=== PATIENT | female | born 1990 | race Caucasian/White ===

== ENCOUNTER 2020-06-08 07:29 | Inpatient (IN) ==
[2020-06-08] MEDS ORDERED: OXYTOCIN 30 UNITS/500 ML BAG IV PRN ×3 (07:45→08:47)
[2020-06-08] MEDS: LACTATED RINGER'S 1,000 ML IV PRN ×4 (08:12→19:01)
[2020-06-08 08:14] LABS: Hematocrit (blood only) 35.6 % (37-47); Hemoglobin 11.8 g/dL (12.0-16.0); Mean Corpuscular Hemoglobin 30.8 pg (25-34); Mean Platelet Volume 10.6 fL (7.4-10.4); Platelet Count 212 K/uL (130-400); RDW Coefficient of Variation 15.1 % (11.5-14.5); RDW Standard Deviation 51.3 fL (36.4-46.3); Red Blood Count 3.83 M/uL (4.2-5.4); White Blood Count 9.48 K/uL (4.8-10.8)
[2020-06-08 08:20] LABS: Mean Corpuscular Hgb Conc 33.1 g/dL (32-36)
--- NOTE | 2020-06-08 08:38 | History & Physical Report ---
Date of Service June 08, 2020 Assessment & Plan (1) Elective induction of labor planned: Hortencia is a 29 y/o female currently at 40-6/7 WGA with an CAPO 06/02/20 as determined by LMP who is here with her , Tom, for scheduled IOL in setting of post-dates after undergoing cervical ripening yesterday evening. - Begin IOL with Pitocin protocol - Patient requesting epidural -- anesthesia consulted - GBS neg - Blood type A+ - Rubella immune History of Present Illness Primary Care Provider: NO PCP Hortencia is a 29 y/o female currently at 40-6/7 WGA with an CAPO 06/02/20 as determined by LMP who is here for scheduled IOL for post-dates after undergoing cervical ripening yesterday. She had no complications during her . Overall, feels well today. Endorses irregularly spaced contractions after cervical ripening last night, but none this AM; has noted less movement over last two days as compared to her normal; denies fluid loss; denies bloody show. 06/08: External FHT and external uterine monitors used; Category 1 tracing; +FHT variability with baseline FHR ~150. Had regular appointments with OB. Labs: (11/26/19) Blood type: A+ Antibody screen: neg H.8 (today) Hct: 35.6 (today) WBC: 9.48 (today) Plt: 212 (today) Rubella: immune VDRL/RPR: neg Gonorrhea: neg Chlamydia: neg HIV: neg GBS: neg Allergies Allergy/AdvReac Type Severity Reaction Status Date / Time Penicillins Allergy joint Verified 06/07/20 12:26 swelling as a baby Home Medications Home Medications Medication Instructions Recorded Confirmed Type prenat.vits,godwin,sqt-nfrl-spkco 1 tab PO DAILY 11/19/19 06/08/20 History ferrous sulfate 325 mg (65 mg 325 mg PO Q OTHER DAY tab 04/07/20 06/08/20 History iron) tablet Patient History Social History (Updated 11/19/19 @ 10:59 by Liane Martinez) Smoking Status: Never smoker Second Hand Exposure: No; Hx Alcohol Use: No Hx Substance Use: No Preferred Language: Arabic Beliefs That Will Affect Care: None marital status: marital status details: Tom Redd (31) [phone] Current Living Situation: Spouse Current Living Situation Comment: lives with spouse, 2 dogs current occupational status: employed current occupation: dental hygenist Other Information That Helps Us Care for You: No Feels Safe at Home: Yes Safety Concerns: Feels Safe At This Time Review of Systems no fever, no chills and no sweats denies headache, changes in vision no dyspnea no chest pain, no dyspnea, no dyspnea at rest and no palpitations no dysuria no breast pain Physical Exam Physical Exam: General: Alert, oriented. No acute distress. Cardiac: Regular rate and rhythm, no murmurs/rubs/gallops. Respiratory: Clear to auscultation bilaterally a/p, no wheezes/rales/rhonchi. No increased work of breathing. Symmetrical chest rise. No respiratory distress. Pelvic: Dilation 4 cm; Effacement 70%; Station -[address] Beltran as of this AM Lower Extremities: No lower extremity edema or swelling. No deep calf pain. Mandie's negative bilaterally Results & Data Vital Signs (Past 12 Hours) Vital Signs Temp Pulse Resp BP 06/08/20 08:23 92 H 105/62 06/08/20 07:35 37.1 C 106 H 20 109/67 Supervising Physician Co-Signing Physician Notes Resident Physician Supervision Note: I interviewed and examined the patient. Discussed with Dr. Jalloh and agree with findings and plan as documented in the note. Any exceptions or clarifications are listed here: [None] Documented By: Dolly Shultz MD, FACOG Resident Activity Tracking Resident Involvement: Resident Care Provided Care Provided: Adult Hospital Medicine and OB Delivery
[2020-06-08] MEDS ORDERED: ePHEDrine sulfate 50 MG/ML AMP ONE (10:42)
[2020-06-08] MEDS ORDERED: fentaNYL 2MCG/ML ROPIV 1.25MG/ML 100 ML BAG EPI ONE (10:42)
[2020-06-08] MEDS ORDERED: fentaNYL citrate 100 MCG/2 ML VIAL ONE ×2 (10:42→22:51)
[2020-06-08] MEDS ORDERED: BUPIVACAINE 0.25% 30 ML VIAL ONE (10:42)
[2020-06-08] MEDS ORDERED: NALOXONE HCL 0.4 MG/1 ML VIAL/CARP IV PRN ×2 (11:12→22:53)
[2020-06-08] MEDS ORDERED: ePHEDrine sulfate 50 MG/ML AMP IV PRN ×2 (11:12→22:53)
[2020-06-08] MEDS ORDERED: DiphenhydrAMINE HCL 50 MG/ML VIAL IV PRN ×2 (11:12→22:53)
[2020-06-08] MEDS ORDERED: ONDANSETRON INJ 2 MG/ML 2 ML VIAL IV PRN (11:12)
[2020-06-08] MEDS ORDERED: NALOXONE HCL 1 MG in SODIUM CHLORIDE 0.9% 1000ML 1,000 ML IV PRN ×2 (11:12→22:53)
--- NOTE | 2020-06-08 11:19 | Anesthesiology Consultation ---
Date of Service June 08, 2020 Covid 19 negative on 06/02/20. Assessment & Plan Chart Review Chart Review: Patient NOT seen in Pre Admission Testing and Acceptable Risk for Labor Epidural Consults Requested none ASA ASA2 Proposed Anesthesia Anesthesia Type: Labor Epidural and CSE Risk / Benefits Reviewed With: PT / POA / Parent / Guardian, Accepts Plan and Informed Consent Obtained History Height/Weight Height: 5 ft 2 in Weight: 80.087 kg Allergies Allergy/AdvReac Type Severity Reaction Status Date / Time Penicillins Allergy joint Verified 06/07/20 12:26 swelling as a baby Medications Home Medications Medication Instructions Recorded Confirmed Last Taken prenat.vits,godwin,arc-cytg-yfocm 1 tab PO DAILY 11/19/19 06/08/20 06/07/20 08:00 ferrous sulfate 325 mg (65 mg 325 mg PO Q OTHER DAY tab 04/07/20 06/08/2005/11 08:00 iron) tablet Active Medications Generic Name Dose Route Start Last Admin Trade Name Freq PRN Reason Stop Dose Admin Lactated Ringer's 1,000 mls @ 125 mls/hr 06/08/20 07:45 06/08/20 11:16 Lr IV 06/10/20 07:44 999 mls/hr .Q8H PRN Administration L&D Protocol Protocol Oxytocin 30 units in 500 mls @ 9 mls/hr 06/08/20 07:45 06/08/20 10:33 Pitocin IV 06/10/20 07:44 0.54 units/hr .Q24H PRN 9 mls/hr Labor Induction/Augmentation Titration Protocol 0.54 UNITS/HR NPO Date Last Intake of Fluids: 06/08/20 Time Last Intake of Fluids: 10:00 Date Last Intake of Solids: 06/08/20 Time Last Intake of Solids: 06:45 Past Medical History Medical History Hx: UTI (urinary tract infection) Varicella vaccination Exercise / Class Metabolic Activity II 4-5 Yardwork/Stairs/Walk up hill Past Family History Family History Grandfather (Paternal) Type 1 diabetes Heart disease Father Heart disease Dyslipidemia Grandmother (Paternal) Breast cancer Past Surgical History Surgical History History of tonsillectomy and adenoidectomy (~06/01/02) Hx of breast reduction, elective (~05/27/12) Past Anesthesia History No Hx of Anesthesia Complications and No Family Hx of Anesthesia Complications History of PONV No Hx of PONV and No Hx of Motion Sickness Social History Smoking Status: Never smoker Hx Alcohol Use: No Hx Substance Use: No substance use type: does not use Review of Systems no chest pain or sob Physical Exam Vital Signs Last Vital Signs Temp 36.8 C 06/08/20 08:45 Pulse 156 H 06/08/20 11:03 Resp 16 06/08/20 09:24 BP 108/66 06/08/20 10:37 Pulse Ox 79 L 06/08/20 11:03 ENMT Mouth: no TMJ abnormality Thyromental Distance: > or= 3.5 Finger Breadths Mallampati Class: II Neck normal visual inspection Respiratory normal respiratory effort Auscultation: lungs clear to auscultation bilaterally Cardiovascular Rate/Rhythm: regular rate and regular rhythm Musculoskeletal Spine: normal cervical ROM Neurologic moves all extremities Psychiatric Orientation: alert and oriented x 3 Testing Laboratory Results 06/08/20 07:55
[2020-06-08] MEDS: fentaNYL 2MCG/ML ROPIV 1.25MG/ML 100 ML BAG EPI PRN ×2 (11:32→20:02)
[2020-06-08] MEDS ORDERED: CITRIC ACID/SODIUM CITRATE 15 ML UDC PO SCH (22:30)
[2020-06-08] MEDS ORDERED: CEFAZOLIN 2000MG 2,000 MG/15 ML SYR IV SCH (22:30)
[2020-06-08] MEDS ORDERED: MoRPHine SULFATE PF 1 MG/ML 10 ML AMP/VIAL EPI ONE (22:53)
[2020-06-08] MEDS ORDERED: LACTATED RINGER'S 500 ML IV PRN (22:53)
[2020-06-08] MEDS ORDERED: HYDROmorphone INJ 0.5 MG/0.5 ML SYR IV PRN (22:53)
[2020-06-08] MEDS ORDERED: NALOXONE HCL 0.08 MG in SYRINGE 1.8 ML IV PRN (22:53)
[2020-06-08] MEDS ORDERED: SODIUM CHLORIDE 0.9% 1000ML 1,000 ML IV SCH (23:00)
[2020-06-08] MEDS ORDERED: DC INTRASPINAL MORPHINE SCH (23:00)
[2020-06-08] MEDS ORDERED: NO NARCOTICS OR SEDATIVES SCH (23:00)
[2020-06-08] MEDS ORDERED: OXYTOCIN 10 UNITS/ML VIAL ONE (23:08)
[2020-06-08] MEDS ORDERED: MoRPHine SULFATE PF 1 MG/ML 10 ML AMP/VIAL ONE (23:08)
[2020-06-08] MEDS ORDERED: PHENYLEPHRINE HCL 10 MG/ML VIAL ONE (23:13)
--- NOTE | 2020-06-08 23:53 | Post Operative Brief Note ---
PG Immediate Post Op with CF Date of Surgery June 08, 2020 Pre & Post Diagnosis Operation Date: 06/08/20 23:00 Pre-Op Diagnosis: 1. intolerance to labor Post-Op Diagnosis: 1. Same 2. Delivery of live male child at 2319 I identified the patient and participated in the time-out.: Yes Procedure Operation Date: 06/08/20 23:00 Actual Procedures p Section in LD(Bilateral) - Dolly Shultz MD, FACOG Surgeon Dolly Shultz MD, FACOG [employer] Plant Operator Danay Tsai RN Estimated Blood Loss 700 Findings Consistent with Post-Op Diagnosis Specimens Specimen Description: 1. Cord blood 2. Placenta-hold Drains Calzada Catheter
[2020-06-09] MEDS ORDERED: PROMETHAZINE HCL 25 MG in SODIUM CHLORIDE 0.9% 50 ML IV PRN
[2020-06-09] MEDS ORDERED: DIPHTHERIA/TETANUS/PERTUSSIS 0.5 ML SYR/VIAL IM ONE
[2020-06-09] MEDS ORDERED: MAGNESIUM HYDROXIDE SUSP 30 ML UDC PO PRN
[2020-06-09] MEDS ORDERED: ACETAMINOPHEN 325 MG TAB PO PRN
[2020-06-09] MEDS ORDERED: BENZOCAINE 20% AER SPR 82.5 GM CAN EXT PRN
[2020-06-09] MEDS ORDERED: SENNA 8.6 MG TAB PO PRN
[2020-06-09] MEDS ORDERED: HYDROCORTISONE ACETATE 25 MG SUPP PR PRN
[2020-06-09] MEDS ORDERED: SUPERCREAM 0.870% 15 GM JAR EXT PRN
[2020-06-09] MEDS: KETOROLAC 30 MG/ML VIAL IV PRN ×3 (00:36→16:30)
[2020-06-09] MEDS: OXYTOCIN 20 UNITS in LACTATED RINGER'S 1,000 ML IV SCH ×2 (00:57→09:05)
--- NOTE | 2020-06-09 00:58 | Anesthesiology Progress Note ---
Date of Service June 09, 2020 Anesthesia Post Procedure Vital Signs Vital Signs: Temp Pulse Resp BP Pulse Ox 06/09/20 00:56 79 99 06/09/20 00:52 88 93/56 L 06/09/20 00:51 82 99 06/09/20 00:46 83 98 06/09/20 00:43 93 H 87/57 L 06/09/20 00:41 87 100 06/09/20 00:36 84 98 06/09/20 00:32 78 93/51 L 06/09/20 00:31 76 98 06/09/20 00:26 79 98 06/09/20 00:22 72 92/54 L 06/09/20 00:21 77 99 06/09/20 00:16 84 99 06/09/20 00:12 101 H 99/55 L 06/09/20 00:11 111 H 98 06/09/20 00:09 82 91 06/09/20 00:06 84 100 06/09/20 00:01 78 106/57 L 100 06/08/20 22:53 84 97 06/08/20 22:51 72 119/69 06/08/20 22:48 90 97 06/08/20 22:43 80 97 06/08/20 22:38 90 97 06/08/20 22:36 85 119/73 06/08/20 22:33 75 97 06/08/20 22:30 37.0 C 06/08/20 22:28 76 98 06/08/20 22:23 79 98 06/08/20 22:21 78 115/67 06/08/20 22:18 83 97 06/08/20 22:13 82 100 06/08/20 22:08 82 109/62 100 06/08/20 22:03 82 100 06/08/20 22:00 18 06/08/20 21:58 75 100 06/08/20 21:53 79 101/55 L 97 06/08/20 21:48 82 96 06/08/20 21:43 68 95 06/08/20 21:38 76 96 06/08/20 21:37 72 105/58 L 06/08/20 21:33 71 96 06/08/20 21:30 18 06/08/20 21:28 76 97 06/08/20 21:23 74 97 06/08/20 21:22 75 109/61 06/08/20 21:18 78 97 06/08/20 21:13 82 97 06/08/20 21:10 37.2 C 18 06/08/20 21:08 75 95 06/08/20 21:06 77 100/65 06/08/20 21:03 78 96 06/08/20 20:58 78 95 06/08/20 20:53 74 97 06/08/20 20:51 81 104/65 06/08/20 20:48 72 97 06/08/20 20:43 92 H 97 06/08/20 20:38 74 97 06/08/20 20:37 69 103/55 L 06/08/20 20:33 72 96 06/08/20 20:30 18 06/08/20 20:28 73 96 06/08/20 20:25 74 93 06/08/20 20:23 70 87/51 L 97 06/08/20 20:18 70 95 06/08/20 20:13 76 96 06/08/20 20:08 94 H 110/54 L 97 06/08/20 20:03 78 95 06/08/20 20:00 18 06/08/20 19:58 72 95 06/08/20 19:55 78 94 06/08/20 19:53 85 96 06/08/20 19:51 86 94/52 L 06/08/20 19:48 87 96 06/08/20 19:47 71 94 06/08/20 19:43 90 96 06/08/20 19:39 75 94 06/08/20 19:37 83 101/57 L 96 06/08/20 19:32 76 96 06/08/20 19:30 18 06/08/20 19:27 68 95 06/08/20 19:22 76 106/60 96 06/08/20 19:17 74 96 06/08/20 19:12 88 96 06/08/20 19:09 37.3 C 18 06/08/20 19:07 84 96 06/08/20 19:06 70 107/64 06/08/20 19:02 83 96 06/08/20 18:57 81 96 06/08/20 18:52 82 112/64 97 06/08/20 18:47 79 97 06/08/20 18:42 66 96 07/29/20 18:37 77 111/67 98 06/08/20 18:32 74 96 06/08/20 18:27 69 95 06/08/20 18:22 84 97 06/08/20 18:21 76 101/58 L 06/08/20 18:17 83 98 06/08/20 18:14 84 90 06/08/20 18:12 85 97 06/08/20 18:08 77 94 06/08/20 18:07 74 95 06/08/20 18:06 73 100/50 L 06/08/20 18:02 75 95 06/08/20 17:57 75 95 06/08/20 17:52 73 103/56 L 95 06/08/20 17:47 77 95 06/08/20 17:45 74 94 06/08/20 17:42 77 95 06/08/20 17:37 70 106/58 L 96 06/08/20 17:32 70 95 06/08/20 17:27 71 95 06/08/20 17:22 75 106/58 L 96 06/08/20 17:17 76 96 06/08/20 17:12 64 97 06/08/20 17:08 74 106/61 06/08/20 17:07 79 97 06/08/20 17:03 84 94 06/08/20 17:02 79 96 06/08/20 16:57 74 95 06/08/20 16:52 37.0 C 72 20 110/56 L 96 06/08/20 16:47 77 97 06/08/20 16:42 69 97 06/08/20 16:38 73 93 06/08/20 16:37 71 103/52 L 95 06/08/20 16:32 78 93 06/08/20 16:27 79 98 06/08/20 16:22 76 98/51 L 96 06/08/20 16:17 81 97 06/08/20 16:12 84 96 06/08/20 16:09 73 91/51 L 06/08/20 16:07 73 98 06/08/20 16:06 75 89/53 L 06/08/20 16:02 73 96 06/08/20 15:57 73 96 06/08/20 15:52 69 91/53 L 95 06/08/20 15:47 77 96 07/29/20 15:42 78 96 06/08/20 15:37 75 91/51 L 96 06/08/20 15:32 86 95 06/08/20 15:27 94 H 95 06/08/20 15:26 88 92 06/08/20 15:22 86 96 06/08/20 15:21 76 106/62 06/08/20 15:20 88 94 06/08/20 15:17 75 96 06/08/20 15:15 91 H 94 06/08/20 15:12 85 95 06/08/20 15:07 100 H 97 06/08/20 15:06 36.2 C L 76 18 107/63 06/08/20 15:02 94 H 96 06/08/20 14:57 81 97 06/08/20 14:53 80 94 06/08/20 14:52 81 102/58 L 95 06/08/20 14:47 73 95 06/08/20 14:42 76 96 06/08/20 14:37 78 97 06/08/20 14:36 70 104/66 06/08/20 14:32 74 99 06/08/20 14:27 36.8 C 71 20 99 06/08/20 14:22 74 99 06/08/20 14:21 71 102/66 06/08/20 14:17 75 100 06/08/20 14:12 77 100 06/08/20 14:08 76 102/59 L 06/08/20 14:07 90 107/74 97 06/08/20 14:02 73 95 06/08/20 13:57 62 95 06/08/20 13:52 69 16 98/53 L 97 06/08/20 13:47 76 97 06/08/20 13:42 74 97 06/08/20 13:37 71 16 94/55 L 97 06/08/20 13:32 73 97 06/08/20 13:27 70 97 06/08/20 13:22 85 20 115/61 99 06/08/20 13:17 78 97 06/08/20 13:12 73 97 06/08/20 13:07 79 94/54 L 97 06/08/20 13:02 76 97 06/08/20 12:57 73 96 06/08/20 12:52 74 108/64 98 06/08/20 12:47 77 99 06/08/20 12:42 87 97 06/08/20 12:38 89 109/66 06/08/20 12:37 89 96 06/08/20 12:32 88 95 06/08/20 12:27 85 98 06/08/20 12:22 89 97 06/08/20 12:21 78 110/65 06/08/20 12:17 85 98 06/08/20 12:12 76 97 06/08/20 12:07 80 97 06/08/20 12:06 75 106/61 06/08/20 12:02 74 96 06/08/20 11:57 72 96 06/08/20 11:53 72 110/64 06/08/20 11:52 71 97 06/08/20 11:47 86 97 06/08/20 11:42 73 97 06/08/20 11:37 87 98 06/08/20 11:36 37.2 C 83 16 102/62 06/08/20 11:34 75 108/70 06/08/20 11:32 87 109/71 98 06/08/20 11:30 67 105/70 06/08/20 11:29 82 106/76 06/08/20 11:27 79 100 06/08/20 11:22 101 H 100 06/08/20 11:20 80 117/64 06/08/20 11:17 91 H 100 06/08/20 11:03 156 H 79 L 06/08/20 10:37 85 108/66 06/08/20 09:24 78 16 104/59 L 06/08/20 09:07 82 20 108/65 06/08/20 08:53 85 109/66 06/08/20 08:45 36.8 C 104 H 20 106/67 06/08/20 08:37 104 H 20 106/67 06/08/20 08:23 92 H 16 105/62 06/08/20 07:35 37.1 C 106 H 20 109/67 Pain Intensity Abdomen: Pain Intensity: 0 Transfer of Care Handoff Completed per policy Notes Mental Status: alert / awake / arousable Patient Amnestic to Procedure: Yes Nausea / Vomiting: adequately controlled Pain: adequately controlled Airway Patency, RR, SpO2: stable & adequate BP & HR: stable & adequate Hydration State: stable & adequate Neuraxial Anesthesia: was administered and sensory block is resolving Anesthetic Complications: no major complications apparent and Pt Satisfied with anesthetic care
[2020-06-09] MEDS: ONDANSETRON INJ 2 MG/ML 2 ML VIAL IV PRN ×2 (01:09→09:12)
--- NOTE | 2020-06-09 02:01 | Operative Report (OR) ---
DATE OF OPERATION: 06/08/2020 SURGEON: Dolly Mckeon MD. ABRASIVE WHEEL MOLDER: Danay Tsai RN. PREOPERATIVE DIAGNOSES: Intrauterine at 40 and 6/7 weeks, intolerance of labor, arrest of dilation. POSTOPERATIVE DIAGNOSES: Intrauterine at 40 and 6/7 weeks, intolerance of labor, arrest of dilation plus delivery of a viable male , 7 pounds 7 ounces, Apgars 9 and 9. PROCEDURE: Primary low transverse section. ANESTHESIA: Epidural. BLOOD LOSS: 600 mL. HISTORY: The patient is a 29-year-old 1, para 0 white female who presented at 40 and 6/7 weeks for induction of labor because of post-term . She received a cervical balloon which dilated her cervix to 4 cm dilated. She was begun on Pitocin augmentation on the morning of 06/08/2020. Membranes were ruptured for clear fluid. She received epidural analgesia. She made slow progress to 6 cm dilated. An IUPC was placed to ensure that she had adequate contraction strength. At this time, the heart rate began to show persistent late decelerations that were getting deeper as time went on. Fluid bolus and oxygen and position changes did not relieve the late decelerations and the Pitocin was stopped. Late decelerations at that time were resolved, but the cervix was still at 6 cm dilated. It was felt prudent then to proceed with low transverse section because that delivery was in the distant future. The patient and her agreed and all their questions were answered to their satisfaction. GROSS FINDINGS: Uterus is gravid and consistent with a term in size. Bilateral ovaries and fallopian tubes were grossly normal. The was in an occiput posterior presentation, but also asynclitic. DESCRIPTION OF PROCEDURE: After the patient received adequate epidural anesthetic, she was prepped and draped in usual sterile fashion. A low transverse skin incision was made with the scalpel and carried to the fascia with the same scalpel. The fascial incision was then extended with Mccloud scissors and the underlying rectus muscle was bluntly and sharply dissected off the overlying fascia. The rectus muscles were bluntly divided on the midline and the underlying peritoneum elevated and entered bluntly. The bladder was then taken down off the anterior surface of the uterus and placed behind the bladder blade. Lower uterine segment was entered with the scalpel and extended transversely. The infant was delivered easily from the pelvis with moderate fundal pressure. Mouth and nasopharynx were suctioned upon delivery. The was vigorously crying and moving all 4 limbs. The cord was then clamped and cut and handed off to Dr. Sinha, who was in attendance as laboratory technical specialist. The placenta was then expressed intact with a 3-vessel cord. The uterus was then exteriorized and covered with a clean lap sponge. The uterine cavity was explored and found to be free of any placental tissue or membranes. The uterus was then closed in 2 layers in a running locking imbricating fashion with 0 Monocryl. Hemostasis was excellent and on the uterine incision. The posterior cul-de-sac was irrigated with normal saline. The incision was examined once more and continued to have excellent hemostasis. The uterus was placed gently back in the abdominal cavity. The gutters were explored and found to be free of any clot or fluid. The uterine incision continued to have excellent hemostasis. The anterior cul-de-sac was irrigated with normal saline. The fascia was then closed in a running fashion with 0 Vicryl. After irrigating the adipose layer, the skin edges were reapproximated using a subcuticular stitch of 3-0 Vicryl. Urine was clear at the end of the case. Mother and infant were doing well after delivery. I attest to the content of the Intraoperative Record and any orders documented therein. Any exception s are noted below.
--- NOTE | 2020-06-09 06:09 | Obstetrical Progress Note ---
Date of Service <Soto Jalloh MD - Last Filed: 06/09/20 06:28> June 09, 2020 Assessment & Plan <Soto Jalloh MD - Last Filed: 06/09/20 06:28> (1) S/P : - 29yo who is now s/p late yesterday evening 2/2 intolerance of labor and arrest of maternal dilation - Feels well overall today - Pain well controlled with percocet, ibuprofen 600mg Q4H PRN. - Routine post-op care -- OOB, ambulation, diet slowly and as tolerated; anticipate parish d/c today - Can have design center consultant come by today to aid with should pt desire Day #:: 1 Subjective <Soto Jalloh MD - Last Filed: 06/09/20 06:28> Hortencia is a 29 y/o female who is POD #1 following delivery at 40- 6/7 weeks in setting of intolerance of labor and arrest of maternal dilation. She reports feeling well overall this morning. Endorses abdominal cramping and pain aggravated by moving but is well managed on analgesics. Parish in place draining clear urine. No PO intake yet and has not yet ambulated. Not yet passing gas and no BM yet. Currently breast feeding - endorses some difficulty with success but no pain/tenderness. Review of Systems Denies fever, chills, sweats Denies shortness of breath, difficulty breathing, chest pain, palpitations, chest pressure. Denies breast pain. Denies dysuria. Denies headache or changes in vision. Physical Exam <Soto Jalloh MD - Last Filed: 06/09/20 06:28> General: Alert, oriented. No acute distress. Cardiac: Regular rate and rhythm, no murmurs/rubs/gallops. Respiratory: Clear to auscultation bilaterally a/p, no wheezes/rales/rhonchi. No increased work of breathing. Symmetrical chest rise. No respiratory distress. Abdomen: Soft, nontender, nondistended. Bowel sounds present. Uterus: Uterine fundus firm, palpable at level of umbilicus. << Surgical scar clean and healing well. >> Lower Extremities: No lower extremity edema or swelling. No deep calf pain. Mandie's negative bilaterally. Results & Data <Soto Jalloh MD - Last Filed: 06/09/20 06:28> Vital Signs (Past 12 Hours) Vital Signs Temp Pulse Pulse Resp BP BP Pulse Ox 06/09/20 04:45 16 100 06/09/20 04:30 37.0 C 88 16 109/68 100 06/09/20 03:15 16 99 06/09/20 02:16 83 99 06/09/20 02:15 37.1 C 77 16 110/65 99 06/09/20 02:12 82 114/69 06/09/20 02:11 94 H 97 06/09/20 02:06 73 96 06/09/20 02:05 37.1 C 16 06/09/20 02:02 71 108/57 L 06/09/20 02:01 72 96 06/09/20 01:56 66 97 06/09/20 01:52 71 104/58 L 06/09/20 01:51 71 97 06/09/20 01:46 66 97 06/09/20 01:43 68 94 06/09/20 01:42 66 107/57 L 06/09/20 01:41 76 98 06/09/20 01:36 75 97 06/09/20 01:35 16 06/09/20 01:32 80 104/57 L 06/09/20 01:31 68 99 06/09/20 01:26 71 97 06/09/20 01:22 60 98/54 L 06/09/20 01:21 66 99 06/09/20 01:16 76 99 06/09/20 01:12 73 111/63 06/09/20 01:11 78 99 06/09/20 01:06 84 100 06/09/20 01:05 37.1 C 66 16 97 06/09/20 01:02 71 100/55 L 06/09/20 01:01 80 99 06/09/20 00:56 79 99 06/09/20 00:55 16 06/09/20 00:52 88 93/56 L 06/09/20 00:51 82 99 06/09/20 00:46 83 98 06/09/20 00:45 16 06/09/20 00:43 93 H 87/57 L 06/09/20 00:41 87 100 06/09/20 00:36 84 98 07/30/20 00:35 16 06/09/20 00:32 78 93/51 L 06/09/20 00:31 76 98 06/09/20 00:26 79 98 06/09/20 00:25 16 06/09/20 00:22 72 92/54 L 06/09/20 00:21 77 99 06/09/20 00:16 84 99 06/09/20 00:15 16 06/09/20 00:12 101 H 99/55 L 06/09/20 00:11 111 H 98 06/09/20 00:09 82 91 06/09/20 00:06 84 100 06/09/20 00:05 37.1 C 18 06/09/20 00:01 78 106/57 L 100 06/08/20 22:53 84 97 06/08/20 22:51 72 119/69 06/08/20 22:48 90 97 06/08/20 22:43 80 97 06/08/20 22:38 90 97 06/08/20 22:36 85 119/73 06/08/20 22:33 75 97 06/08/20 22:30 37.0 C 18 06/08/20 22:28 76 98 06/08/20 22:23 79 98 06/08/20 22:21 78 115/67 06/08/20 22:18 83 97 06/08/20 22:13 82 100 06/08/20 22:08 82 109/62 100 06/08/20 22:03 82 100 06/08/20 22:00 18 06/08/20 21:58 75 100 06/08/20 21:53 79 101/55 L 97 06/08/20 21:48 82 96 06/08/20 21:43 68 95 06/08/20 21:38 76 96 06/08/20 21:37 72 105/58 L 06/08/20 21:33 71 96 06/08/20 21:30 18 06/08/20 21:28 76 97 06/08/20 21:23 74 97 06/08/20 21:22 75 109/61 06/08/20 21:18 78 97 06/08/20 21:13 82 97 06/08/20 21:10 37.2 C 18 06/08/20 21:08 75 95 06/08/20 21:06 77 100/65 06/08/20 21:03 78 96 06/08/20 20:58 78 95 06/08/20 20:53 74 97 06/08/20 20:51 81 104/65 06/08/20 20:48 72 97 06/08/20 20:43 92 H 97 06/08/20 20:38 74 97 06/08/20 20:37 69 103/55 L 06/08/20 20:33 72 96 06/08/20 20:30 18 06/08/20 20:28 73 96 06/08/20 20:25 74 93 06/08/20 20:23 70 87/51 L 97 06/08/20 20:18 70 95 06/08/20 20:13 76 96 06/08/20 20:08 94 H 110/54 L 97 06/08/20 20:03 78 95 06/08/20 20:00 18 06/08/20 19:58 72 95 06/08/20 19:55 78 94 06/08/20 19:53 85 96 06/08/20 19:51 86 94/52 L 06/08/20 19:48 87 96 06/08/20 19:47 71 94 06/08/20 19:43 90 96 06/08/20 19:39 75 94 06/08/20 19:37 83 101/57 L 96 06/08/20 19:32 76 96 06/08/20 19:30 18 06/08/20 19:27 68 95 06/08/20 19:22 76 106/60 96 06/08/20 19:17 74 96 06/08/20 19:12 88 96 06/08/20 19:09 37.3 C 18 06/08/20 19:07 84 96 06/08/20 19:06 70 107/64 06/08/20 19:02 83 96 06/08/20 18:57 81 96 06/08/20 18:52 82 112/64 97 06/08/20 18:47 79 97 06/08/20 18:42 66 96 06/08/20 18:37 77 111/67 98 06/08/20 18:32 74 96 06/08/20 18:27 69 95 06/08/20 18:22 84 97 06/08/20 18:21 76 101/58 L 06/08/20 18:17 83 98 06/08/20 18:14 84 90 06/08/20 18:12 85 97 06/08/20 18:08 77 94 06/08/20 18:07 74 95 06/08/20 18:06 73 100/50 L <Dolly Shultz MD, FACOG - Last Filed: 06/09/20 07:50> Co-Signing Physician Notes Resident Physician Supervision Note: I interviewed and examined the patient. Discussed with Dr. Jalloh and agree with findings and plan as documented in the note. Any exceptions or clarifications are listed here: [None] Documented By: Dolly Shultz MD, FACOG Resident Activity Tracking <Soto Jalloh MD - Last Filed: 06/09/20 06:28> Resident Involvement: Resident Care Provided Care Provided: Adult Hospital Medicine and OB Delivery
[2020-06-09] MEDS: SIMETHICONE 80 MG CHEW PO SCH ×4 (08:05→20:11)
[2020-06-09] MEDS: FERROUS SULFATE 325 MG TAB PO SCH (08:07)
[2020-06-09] MEDS: PRENATAL VITAMIN 1 TAB PO SCH (08:07)
[2020-06-09] MEDS: DOCUSATE SODIUM 100 MG CAP PO SCH ×2 (08:07→20:10)
[2020-06-09] MEDS ORDERED: LACTATED RINGER'S 1,000 ML IV SCH (16:30)
[2020-06-09] MEDS ORDERED: KETOROLAC 30 MG/ML VIAL IV PRN (16:53)
[2020-06-09] MEDS ORDERED: ZOLPIDEM TARTRATE 5 MG TAB PO PRN (16:53)
[2020-06-09] MEDS ORDERED: ONDANSETRON INJ 2 MG/ML 2 ML VIAL IV PRN (16:53)
[2020-06-09] MEDS ORDERED: DiphenhydrAMINE HCL 50 MG/ML VIAL IV PRN (16:53)
[2020-06-09] MEDS ORDERED: MEPERIDINE HCL 50 MG/ML CARP IV PRN (16:53)
[2020-06-09] MEDS: OXYCODONE/ACETAMINOPHEN 5mg/325mg TAB PO PRN (20:10)
[2020-06-10] MEDS: IBUPROFEN 600 MG TAB PO PRN ×4 (01:53→20:45)
[2020-06-10] MEDS: OXYCODONE/ACETAMINOPHEN 5mg/325mg TAB PO PRN ×4 (01:53→20:46)
--- NOTE | 2020-06-10 05:44 | Obstetrical Progress Note ---
Date of Service <Soto Jalloh MD - Last Filed: 06/10/20 06:34> June 10, 2020 Assessment & Plan <Soto Jalloh MD - Last Filed: 06/10/20 06:34> (1) S/P : Hortencia is a 29yo who is s/p 2/2 intolerance of labor and arrest of maternal dilation doing well on POD-2 - Feels well overall today - Pain well controlled with percocet, ibuprofen 600mg Q4H PRN. - Routine post-op care -- OOB, ambulation, diet slowly and as tolerated Day #:: 2 Subjective <Soto Jalloh MD - Last Filed: 06/10/20 06:34> Hortencia is a 29 y/o female who is POD #2 following delivery at 40- 6/7 weeks secondary to intolerance of labor and arrest of dilation. She reports feeling well overall this morning. Minimal abdominal cramping well managed on analgesics. Voiding without difficulty. Tolerating meals overnight and able to ambulate some. Now passing gas but no bowel movements yet. Has some persistent lochia with some improvement this morning. Currently breast feeding. Review of Systems Denies fever, chills, sweats Denies shortness of breath, difficulty breathing, chest pain, palpitations, mario st pressure. Denies breast pain. Denies dysuria. Denies headache or changes in vision. Physical Exam <Soto Jalloh MD - Last Filed: 06/10/20 06:34> General: Alert, oriented. No acute distress. Cardiac: Regular rate and rhythm, no murmurs/rubs/gallops. Respiratory: Clear to auscultation bilaterally a/p, no wheezes/rales/rhonchi. No increased work of breathing. Symmetrical chest rise. No respiratory distress. Abdomen: Soft, nontender, nondistended. Bowel sounds present. Uterus: Uterine fundus firm, palpable 1 cm below umbilicus. Surgical scar clean and healing well. Lower Extremities: No lower extremity edema or swelling. No deep calf pain. Mandie's negative bilaterally. Results & Data <Soto Jalloh MD - Last Filed: 06/10/20 06:34> Vital Signs (Past 12 Hours) Vital Signs Temp Pulse Pulse Resp BP BP Pulse Ox 06/09/20 23:40 36.8 C 115 H 18 131/82 98 06/09/20 19:25 36.6 C 82 16 103/68 99 <Gabriela Loyola MD, FACOG - Last Filed: 06/10/20 07:35> Co-Signing Physician Notes Resident Physician Supervision Note: I interviewed and examined the patient. Discussed with Dr. Jalloh and agree with findings and plan as documented in the note. Any exceptions or clarifications are listed here: Doing well. Routine care. Patient noted a lump in her right axilla. It is a small hair follicle that is irritated. Reassured. Likely d/c tomorrow. Documented By: Gabriela Loyola MD, FACOG Resident Activity Tracking <Soto Jalloh MD - Last Filed: 06/10/20 06:34> Resident Involvement: Resident Care Provided Care Provided: Adult Hospital Medicine and OB Delivery
[2020-06-10 06:43] LABS: Basophils # (auto) 0.01 K/uL (0-0.2); Basophils % (auto) 0.1 %; Eosinophils # (auto) 0.08 K/uL (0-0.5); Eosinophils % (auto) 0.9 %; Hematocrit (blood only) 27.3 % (37-47); Hemoglobin 9.3 g/dL (12.0-16.0); Immature Granulocytes # (auto) 0.03 K/uL (0.00-0.02); Immature Granulocytes % (auto) 0.4 %; Lymphocytes # (auto) 1.01 K/uL (1.2-3.4); Lymphocytes % (auto) 11.9 %; Mean Corpuscular Hgb Conc 34.1 g/dL (32-36); Mean Corpuscular Volume 93.8 fL (80-100); Mean Platelet Volume 10.2 fL (7.4-10.4); Monocytes # (auto) 0.33 K/uL (0.11-0.59); Monocytes % (auto) 3.9 %; Neutrophils # (auto) 7.03 K/uL (1.4-6.5); Neutrophils % (auto) 82.8 %; Platelet Count 152 K/uL (130-400); RDW Coefficient of Variation 15.4 % (11.5-14.5); RDW Standard Deviation 52.7 fL (36.4-46.3); Red Blood Count 2.91 M/uL (4.2-5.4); White Blood Count 8.49 K/uL (4.8-10.8)
[2020-06-10] MEDS: DOCUSATE SODIUM 100 MG CAP PO SCH ×2 (08:21→20:45)
[2020-06-10] MEDS: FERROUS SULFATE 325 MG TAB PO SCH (08:21)
[2020-06-10] MEDS: PRENATAL VITAMIN 1 TAB PO SCH (08:21)
[2020-06-10] MEDS: SIMETHICONE 80 MG CHEW PO SCH ×4 (08:21→20:45)
[2020-06-10] MEDS ORDERED: bisacodyL 5 MG TABEC PO SCH (20:00)
[2020-06-11] MEDS ORDERED: bisacodyL 10 MG SUPP PR PRN
[2020-06-11] MEDS: OXYCODONE/ACETAMINOPHEN 5mg/325mg TAB PO PRN ×2 (05:06→10:23)
[2020-06-11] MEDS: IBUPROFEN 600 MG TAB PO PRN ×2 (05:06→10:23)
--- NOTE | 2020-06-11 05:15 | Obstetrical Progress Note ---
Date of Service <Soto Jalloh MD - Last Filed: 06/11/20 06:18> June 11, 2020 Assessment & Plan <Soto Jalloh MD - Last Filed: 06/11/20 06:18> (1) S/P : Hortencia is a 29yo who is s/p 2/2 intolerance of labor and arrest of maternal dilation doing well on POD-3 - Feels well overall today - Pain well controlled with percocet, ibuprofen 600mg Q4H PRN. - Routine post-op care -- OOB, ambulation, diet slowly and as tolerated - anticipate d/c today pending peds approval Subjective <Soto Jalloh MD - Last Filed: 06/11/20 06:18> Hortencai is a 29 y/o female who is POD #3 following delivery at 40- 6/7 weeks secondary to intolerance of labor and arrest of dilation. She reports feeling well overall this morning. Minimal abdominal cramping well managed on analgesics. Voiding without difficulty. Tolerating meals overnight and able to ambulate some. Passing gas but no bowel movements yet. Has some persistent lochia with some improvement this morning. Currently breast feeding. Review of Systems Denies fever, chills, sweats Denies shortness of breath, difficulty breathing, chest pain, palpitations, chest pressure. Denies breast pain. Denies dysuria. Denies headache or changes in vision. Physical Exam <Soto Jalloh MD - Last Filed: 06/11/20 06:18> General: Alert, oriented. No acute distress. Cardiac: Regular rate and rhythm, no murmurs/rubs/gallops. Respiratory: Clear to auscultation bilaterally a/p, no wheezes/rales/rhonchi. No increased work of breathing. Symmetrical chest rise. No respiratory distress. Abdomen: Soft, nontender, nondistended. Bowel sounds present. Uterus: Uterine fundus firm, palpable 1 cm below umbilicus. Surgical scar clean and healing well. Lower Extremities: No lower extremity edema or swelling. No deep calf pain. Mandie's negative bilaterally. Results & Data <Soto Jalloh MD - Last Filed: 06/11/20 06:18> Vital Signs (Past 12 Hours) Vital Signs Temp Pulse Resp BP Pulse Ox 06/10/20 23:45 36.6 C 70 18 100/66 98 06/10/20 19:40 36.7 C 78 18 115/78 98 <Candelaria Peacock MD - Last Filed: 06/11/20 07:50> Co-Signing Physician Notes I have reviewed the resident's note and examined the patient myself, and agree with the note above. Resident Activity Tracking <Soto Jalloh MD - Last Filed: 06/11/20 06:18> Resident Involvement: Resident Care Provided Care Provided: Adult Hospital Medicine and OB Delivery
[2020-06-11 06:47] LABS: Hematocrit (blood only) 29.3 % (37-47); Hemoglobin 9.7 g/dL (12.0-16.0)
[2020-06-11] MEDS: PRENATAL VITAMIN 1 TAB PO SCH (08:38)
[2020-06-11] MEDS: SIMETHICONE 80 MG CHEW PO SCH (08:38)
[2020-06-11] MEDS: DOCUSATE SODIUM 100 MG CAP PO SCH (08:38)
[2020-06-11] MEDS: FERROUS SULFATE 325 MG TAB PO SCH (09:08)
--- NOTE | 2020-06-14 15:03 | Discharge Summary (DS) ---
PRINCIPAL DIAGNOSIS: Post-term , intolerance of labor and arrest of dilation. PRINCIPAL PROCEDURE: Primary low transverse cervical section. HISTORY: The patient is a 29-year-old G1, P0 white female who presented at 40-6/7 weeks for induction of labor. She had a cervical balloon initially to begin her induction and then was augmented with Pitocin. She progressed slowly to 6 cm dilated. An intrauterine pressure catheter was placed to assess contraction strength. At this time, the heart rate began to show persistent late decelerations. They were getting deeper as time went on. Resuscitated methods were unsuccessful and she proceeded to section as vaginal that was not imminent. She underwent the section without complications. She had an uncomplicated postop course. She was eating regular diet on her 1st postop day and ambulating without difficulty, voiding without difficulty. Pain was well tolerated and controlled with Percocet and Motrin. Hemoglobin on admission 11.8, hematocrit 35.6. First postop day hemoglobin 9.3, hematocrit 27.3 and second postop day hemoglobin 9.7 and hematocrit of 29.3. She was sent home in good condition with the usual instructions and prescriptions for Percocet 1-2 tablets p.o. q. 4 hours p.r.n. pain, Motrin 600 mg p.o. q. 4 hours p.r.n. pain. She is to call for temperature of 101 degrees or higher, heavy vaginal bleeding, burning with urination, increased redness, drainage or pain in her incision, calf tenderness, shortness of breath or any other concerns.
== END 2020-06-11 12:08 | disposition home or self-care (01) | DRG 788 ==
LOC: 4S1 07:29 → 4S2 06-09 02:15